=== PATIENT | female | born 1960 | race Caucasian/White ===

== ENCOUNTER 2022-09-07 14:35 | Emergency (ER) | payer BC, SELFPAY ==
[2022-09-07 14:47] VITALS: BP 140/73; PULSE 79; RESP 18; TEMP 36.4; O2SAT 94
[2022-09-07 14:48] VITALS: BP 140/73; PULSE 79; RESP 18; TEMP 36.4; O2SAT 94
--- NOTE | 2022-09-07 15:12 | ED.SKABFB ---
HPI - Skin/Abscess/Foreign Bdy General Chief complaint: Skin/Abscess/Foreign Body Stated complaint: Insect Bite Toe Lt Foot Time Seen by Provider: 09/07/22 14:38 Source: patient Mode of arrival: ambulatory Limitations: no limitations History of Present Illness HPI narrative: 62-year-old female presents to [facility] with complaints of possible spider or insect bite to her left 2nd toe since yesterday. Patient reports that she woke up yesterday and noticed swelling and redness to her left 2nd toe. Patient has been applying ice and soaked in apple cider vinegar with little relief. Patient reports that she did wear boot outside the day before so she is wondering about an insect bite or spider bite. Patient denies itchiness, fever, body aches, chills, nausea, vomiting or diarrhea MD complaint: other (possible insect/spider bite ) Onset (ago): day(s) (1) Relieving factors: none Exacerbating factors: none Treatments prior to arrival: none Related Data Allergies Allergy/AdvReac Type Severity Reaction Status Date / Time No Known Allergies Allergy Unverified 05/12/17 08:26 Review of Systems Constitutional: Constitutional: Denies chills, Denies fatigue, Denies fever(s) and Denies weakness ENT: Denies dizziness, Denies epistaxis and Denies nasal congestion Cardiovascular: Cardiovascular: Denies chest pain Respiratory: Respiratory: Denies cough, Denies dyspnea and Denies wheezing Gastrointestinal: Gastrointestinal: Denies diarrhea, Denies nausea and Denies vomiting Musculoskeletal: Musculoskeletal: Denies myalgias, Denies arthralgias and Denies joint swelling Integumentary/Breasts: Skin/Breast: Denies pruritus, Reports erythema, Reports rash and Denies skin ulcer Neurologic: Denies dizziness, Denies syncope and Denies headache(s) [facility]LY [facility] Family History Family History Father Family history of gastrointestinal disorder Cerebrovascular accident Sibling Family history of hypercholesterolemia Grandparent Diabetes mellitus Mother Patient's mother is in good health Other Family history of malignant neoplasm Social History Social History Smoking status: Former smoker Smoking end date: 06/21/79 Alcohol intake: current Comments At time of signature, I agree with nursing past medical, surgical, social and family history. There is no relevant family history pertinent to the presenting complaint. Exam Const: General: healthy appearing and no acute distress Nutritional Appearance: well nourished Orientation/consciousness: patient oriented x3 Limitations: no limitations and No altered mental status Eyes: Conjunctivae: conjunctivae normal Neck: Neck: normal visual inspection Chest: Chest palpation & inspection: normal inspection of the chest Resp: Effort & Inspection: normal respiratory effort and not labored Auscultation: clear to auscultation bilaterally, no crackles, no rales, no rhonchi and no wheezes Cardio: Rate: regular rate Rhythm: regular rhythm Heart sounds: no murmurs Skin: General skin exam: normal color and no jaundice Wounds: no wounds Other: Mild erythema, warmth and swelling noted to left 2nd toe. There is no obvious puncture wounds noted. There is no necrotic tissue, streaking erythema or open wounds noted Neuro: General: patient oriented x3 Speech: normal speech Extrem: General: edema Other: Mild erythema and swelling noted to left 2nd toe. Pulses are within normal limits. See skin assessment of chart Psych: Affect: normal affect Attitude: cooperative Course Course Level of Care: Express Care Visit Vital Signs Vital signs: Vital Signs Temperature 36.4 C L 09/07/22 14:47 Pulse Rate 79 09/07/22 14:47 Respiratory Rate 18 09/07/22 14:47 Blood Pressure 140/73 09/07/22 14:47 Pulse Oximetry 94 09/07/22 14:47 Oxygen Delivery Room Air 09/07/22 14:47
== END 2022-09-07 15:24 | disposition home or self-care (01) ==
PROVIDERS: Emergency Provider Nurse Practitioner Family
DX: S90.465A Insect bite (nonvenomous), left lesser toe(s), initial encounter (principal); Z87.891 Personal history of nicotine dependence; W57.XXXA Bitten or stung by nonvenomous insect and other nonvenomous arthropods, initial encounter
CPT/HCPCS: 99213; G0463

== ENCOUNTER 2023-03-18 13:35 | Outpatient (CLI) | payer BC, SELFPAY ==
--- NOTE | ~2023-03-18 | XR_ITS ---
XR sinus min 3V DATE: 03/18/2023 14:10 INDICATION: Nasal congestion TECHNIQUE: dominik Calderon, lateral and submental vertical views COMPARISON: None FINDINGS: There is soft tissue prominence of the nasal turbinates. The paranasal sinuses and mastoid air cells appear normally developed and aerated. No air-fluid levels or opacification of the sinuses or mastoid air cells is evident. IMPRESSION: Negative paranasal sinuses and mastoid air cells Soft tissue prominence of the nasal turbinates Reviewed, dictated and finalized at location A.
== END 2023-03-18 13:36 | disposition home or self-care (01) ==
LOC: ANHIMG 13:41
PROVIDERS: PCP Family Medicine; Visit Provider Family Medicine
DX: R09.81 Nasal congestion (principal); K44.9 Diaphragmatic hernia without obstruction or gangrene; R11.10 Vomiting, unspecified
CPT/HCPCS: 70220

== ENCOUNTER 2023-03-29 09:43 | Outpatient (CLI) | payer BC, SELFPAY ==
--- NOTE | ~2023-03-29 | CT_ITS ---
EXAMINATION: CT abdomen pelvis wo con DATE: 03/29/2023 10:10 INDICATION: Renal cyst. TECHNIQUE: Computed tomography (CT) of the abdomen and pelvis was performed without intravenous contr ast. Automated exposure control and iterative reconstruction technique were employed. The dose-length product was 1068.59 mGy-cm. COMPARISON: 03/08/2017 FINDINGS: Mild dependent atelectasis in bilateral lower lungs. Heart size is normal. No pericardial or pleural effusion. Small sliding-type hiatal hernia. Liver, gallbladder, spleen, pancreas, bilateral adrenal g lands and right kidney are normal. 3.6 cm cyst at the lower pole of the left kidney. Bowels including the appendix are normal. Bladder, anteverted uterus and bilateral adnexa are unremarkable. Postopera tive change of prior left spigelian hernia repair in the anterior left hemipelvis. No free intraperit milan gas or fluid. No pathologically enlarged abdominal or pelvic lymphadenopathy. Moderate lower lorena mbar and lower thoracic spondylosis. Developing anterior fusion at L5-S1. IMPRESSION: 1. 2.6 cm left renal cyst. 2. Small sliding-type hiatal hernia. Reviewed, dictated and finalized at location A.
== END 2023-03-29 09:44 ==
PROVIDERS: PCP Family Medicine; Visit Provider Family Medicine
DX: N28.1 Cyst of kidney, acquired (principal); K44.9 Diaphragmatic hernia without obstruction or gangrene
CPT/HCPCS: 74176

== ENCOUNTER 2023-06-03 00:46 | Day surgery (SDC) | payer BC, SELFPAY ==
[2023-05-20 09:25] VITALS: BMI 34.5
--- NOTE | 2023-05-24 11:59 | PC.NURSE ---
Spoke with Dr. Cruz regarding pts concern about infection risk in ankle/foot hardware, previously had infections. Dr. Cruz ordered Ampicillin IV in pre-op prior to procedure and pt notified.
--- NOTE | 2023-06-01 10:33 | SUR.PREOP ---
Patient called regarding upcoming procedure. Reviewed preop instructions, appointment times, and procedure prep.
--- NOTE | 2023-06-02 15:23 | PM.HPGS ---
History of Present Illness History of Present Illness Consent: Risks, benefits, and alternatives have been discussed and questions answered. Patient agrees to proceed with procedure. Chief complaint: Hematemesis Narrative: Massiel Johnson is a 63 year old female ? Who had been at a fair and had had a few beers, she went home and felt that she needed to throw up.? She walked through her bedroom to the kitchen and then was heading downstairs to the bathroom but did not make it before she vomited.? She then vomited again this time so bright red blood.? After returning to bed she had 1 more episode of emesis but the blood that she? vomited was darker.? She was not having any abdominal pain or chest pain with that.? She does not have chronic heartburn and does not take anything for that.? She does use ibuprofen takes 4 tablets a day.? She has not had any black or tarry stools. Review of Systems Review of Systems: All systems reviewed & are unremarkable except as noted in HPI and below PMFSH Past Medical History Medical History Arthritis Kidney disease Surgical History Surgical History History of ankle surgery Hx of umbilical hernia repair Family History Family History Father Family history of gastrointestinal disorder Cerebrovascular accident Sibling Family history of hypercholesterolemia Grandparent Diabetes mellitus Mother Carcinoma of colon Other Family history of malignant neoplasm Social History Social History Smoking packs per day: 0.2 Smoking cigarettes per day: 4.0 Years smoked: 6 Smoking pack-years: 1.20 Smoking status: Former smoker Tobacco type: cigarettes Smoking end date: 06/21/79 Additional smoking assessment comments: Socail smoker in teens Alcohol intake: current Alcohol use details: Occasionally drinking Substance use: never Lack of Transportation: No Lack of Food: Never True Current Housing: I Do Not Have Housing Concerned About Future Housing: No Difficulty Paying Gas/Electric Bills: No Difficulty Paying for Meds: No Currently Unemployed: No Education: Associate Degree Living arrangements: alone Spiritual care concerns: No Meds Home Medications and Allergies Home Medications Medication Instructions Recorded Confirmed Type No Home Medications 04/06/23 05/20/23 History Allergies Allergy/AdvReac Type Severity Reaction Status Date / Time No Known Allergies Allergy Verified 05/20/23 09:21 Exam Const: General: alert Orientation/consciousness: patient oriented x3 Resp: Auscultation: clear to auscultation bilaterally Cardio: Rhythm: regular rhythm GI: GI Palp: Yes Soft to palpation and No Tenderness to palpation present (GI) Neuro: General: patient oriented x3 Assessment and Plan Assessment and plan (1) Hematemesis: Code(s): K92.0 - Hematemesis Status: Acute Assessment and Plan: EGD with possible biopsy or dilatation or cautery.
[2023-06-03 12:40] VITALS: BP 138/82; PULSE 70; RESP 18; TEMP 36.2; O2SAT 99; BMI 32.5
--- NOTE | 2023-06-03 12:49 | P.PNAN_ITS ---
Anes - Initial Pre Proc Eval Procedure: Operation Date: 06/03/23 13:30 Proposed Procedures p Esophagogastroduodenoscopy & Colonoscopy - Marcelino Cruz MD Date/Time: 06/03/23 12:49 Surgeon: Marcelino Cruz MD Pre Op Diagnosis: Hematemesis Patient Data Age: 63 Gender: F Height: 1.7 m Weight: 94.2 kg Last Vital Signs Temp 97.1 F L 06/03/23 12:40 Pulse 70 06/03/23 12:40 Resp 18 06/03/23 12:40 BP 138/82 06/03/23 12:40 Pulse Ox 99 06/03/23 12:40 O2 Del Method Room Air 06/03/23 12:40 Allergies Allergy/AdvReac Type Severity Reaction Status Date / Time No Known Allergies Allergy Verified 06/03/23 12:37 Home Medications Medication Instructions Recorded Confirmed Type No Home Medications 04/06/23 05/20/23 History Patient hx anesthesia problems: none Family hx anesthesia problems: none Results Review: All pre-operative results and documents have been reviewed as part of the pre- operative evaluation. [facility]LY [facility] Past Medical History Medical History Arthritis Kidney disease Surgical History Surgical History History of ankle surgery Hx of umbilical hernia repair Family History Family History Father Family history of gastrointestinal disorder Cerebrovascular accident Sibling Family history of hypercholesterolemia Grandparent Diabetes mellitus Mother Carcinoma of colon Other Family history of malignant neoplasm Social History Social History Smoking packs per day: 0.2 Smoking cigarettes per day: 4.0 Years smoked: 6 Smoking pack-years: 1.20 Smoking status: Former smoker Tobacco type: cigarettes Smoking end date: 06/21/79 Additional smoking assessment comments: Socail smoker in teens Alcohol intake: current Alcohol use details: Occasionally drinking Substance use: never Lack of Transportation: No Lack of Food: Never True Current Housing: I Do Not Have Housing Concerned About Future Housing: No Difficulty Paying Gas/Electric Bills: No Difficulty Paying for Meds: No Currently Unemployed: No Education: Associate Degree Living arrangements: alone Spiritual care concerns: No Anes - Eval Final PreProcedure Day of Procedure 06/03/23 12:49 Patient weight: normal Heart: regular rate and rhythm Lungs: clear to auscultation Airway: Mallampati scale class II Neurological: alert and oriented Last oral intake: >/= 8 hours ASA classification: II Emergent: no Anesthetic plan: proceed Anesthesia type and monitoring: general GIVS and standard monitoring Results Review: All pre-operative results and documents have been reviewed as part of the pre- operative evaluation. Informed Consent: The patient's anesthetic plan and its attendant risks and benefits were discussed with the patient/family/POA. Questions were solicited and answers provided to the satisfaction of the patient/family/POA.
[2023-06-03] MEDS: LACTATED RINGERS 1,000 ML 150 ML IV CONT (12:53)
[2023-06-03] MEDS: AMPICILLIN 2 GM/NS 100 ML 2 GM/100 ML BAG IVPB (12:53)
[2023-06-03] MEDS: SIMETHICONE ORAL SUSPENSION 20 MG/0.3 ML 30 ML BOTTLE 0.6 ML IRRIGATION (12:59)
--- NOTE | 2023-06-03 13:07 | SUR.OPER ---
EGD began at 1257 and ended at 1302. Colonoscopy began at 1307.
[2023-06-03 13:22] VITALS: BP 105/50; PULSE 74; RESP 17; O2SAT 97
[2023-06-03 13:32] VITALS: BP 114/61; PULSE 75; RESP 23; O2SAT 98
[2023-06-03 13:42] VITALS: BP 121/66; PULSE 64; RESP 26; O2SAT 99
== END 2023-06-03 14:12 | disposition home or self-care (01) ==
PROVIDERS: PCP Family Medicine; Visit Provider Internal Medicine Gastroenterology
PROC: 0DJ08ZZ Inspection of Upper Intestinal Tract, Via Natural or Artificial Opening Endoscopic (ICD-10-PCS; CPT 43235; principal; 2023-06-03 13:30)
DX: Z12.11 Encounter for screening for malignant neoplasm of colon (principal); K22.70 Barrett's esophagus without dysplasia; K21.00 Gastro-esophageal reflux disease with esophagitis, without bleeding; K44.9 Diaphragmatic hernia without obstruction or gangrene; K62.1 Rectal polyp; K63.5 Polyp of colon; K64.8 Other hemorrhoids; Z79.1 Long term (current) use of non-steroidal anti-inflammatories (NSAID); Z80.0 Family history of malignant neoplasm of digestive organs
CPT/HCPCS: 43239; 45385; 87081; 88305; J0290; J2704; J7120

== ENCOUNTER 2023-07-15 08:54 | Outpatient (CLI) | payer BC, SELFPAY ==
--- NOTE | ~2023-07-15 | MM_ITS ---
EXAMINATION: MM screening aida BI w ezekiel HISTORY: Screening mammogram TECHNIQUE: Craniocaudal and mediolateral oblique 3-D tomosynthesis images were obtained and synthetic 2-D images were generated. CAD analysis was submitted and interpreted. COMPARISON: 08/14/2016, 04/23/2007 BREAST PARENCHYMAL COMPOSITION: The breasts are almost entirely fatty. FINDINGS: No suspicious mass, calcification, or architectural distortion are identified in either jaime ast to suggest malignancy. There has been no suspicious interval change. IMPRESSION: 1. No mammographic evidence of malignancy. 2. Recommend routine screening mammography in one year. BI-RADS Category 1: Negative Reviewed, dictated and finalized at location A. [employer]
== END 2023-07-15 08:55 | disposition home or self-care (01) ==
LOC: ANHIMG 09:15
PROVIDERS: PCP Family Medicine; Visit Provider Family Medicine
DX: Z12.31 Encounter for screening mammogram for malignant neoplasm of breast (principal)
CPT/HCPCS: 77063; 77067